=== PATIENT | female | born 2000 | race African-American/Black ===

== ENCOUNTER 2020-06-05 09:30 | Emergency (ER) | payer OTHER ==
--- NOTE | 2020-06-05 10:24 | EDPHYS ---
Physician Documentation [facility] Name: Coleen Connors Age: 20 yrs Sex: Female : 2000 Arrival Date: 06/05/2020 Time: 09:40 Bed 26 Private MD: ED Physician Gómez Sanchez HPI: 06/05 10:19 This 20 yrs old Black Female presents to ER via Ambulatory with complaints of jr8 Vomiting/Diarrhea. 10:19 Patient presents with complaints of diarrhea. She had 1 episode of vomiting on Tuesday jr8 last. Other members in the home have same symptoms. . Historical: - Allergies: 10:01 Purple Dye; aa5 - PMHx: 10:01 None; aa5 - Immunization history:: Flu vaccine is not up to date. - Social history:: Smoking status: Patient denies any tobacco usage or history of. ROS: 10:20 Cardiovascular: Negative for chest pain, palpitations, and edema, Respiratory: Negative jr8 for shortness of breath, cough, wheezing, and pleuritic chest pain, : Negative for injury, bleeding, discharge, and swelling, MS/Extremity: Negative for injury and deformity, Skin: Negative for injury, rash, and discoloration, Neuro: Negative for headache, weakness, numbness, tingling, and seizure. 10:20 Abdomen/GI: Positive for abdominal pain, diarrhea. 10:22 All other systems are negative. jr8 Exam: 10:21 Head/Face: Normocephalic, atraumatic. Cardiovascular: Regular rate and rhythm with a jr8 normal S1 and S2. No gallops, murmurs, or rubs. Normal PMI, no JVD. No pulse deficits. Respiratory: Lungs have equal breath sounds bilaterally, clear to auscultation and percussion. No rales, rhonchi or wheezes noted. No increased work of breathing, no retractions or nasal flaring. MS/ Extremity: Pulses equal, no cyanosis. Neurovascular intact. Full, normal range of motion. Neuro: Awake and alert, GCS 15, oriented to person, place, time, and situation. Cranial nerves II-XII grossly intact. Motor strength 5/5 in all extremities. Sensory grossly intact. Cerebellar exam normal. Normal gait. 10:21 Abdomen/GI: Inspection: abdomen appears normal, Bowel sounds: normal, in all quadrants, Palpation: soft, in all quadrants, mild abdominal tenderness, in all quadrants. Vital Signs: 09:51 BP 135 / 88; Pulse 110; Resp 16 S; Temp 98.6(TE); Pulse Ox 99% on R/A; aa5 MDM: 10:12 Patient medically screened. jr8 10:23 Data reviewed: vital signs, nurses notes, and as a result, I will discharge patient. jr8 Data interpreted: Pulse oximetry: on room air is 99 %. Interpretation: normal. Counseling: I had a detailed discussion with the patient and/or guardian regarding: the historical points, exam findings, and any diagnostic results supporting the discharge/admit diagnosis, the need for outpatient follow up, a family practitioner, to return to the emergency department if symptoms worsen or persist or if there are any questions or concerns that arise at home. 10:23 ED course: Educated to keep hydration with water and Pedialyte. Also informed to eat jr8 bland foods until bowels return to normal. She was educated on prescribed zofran and when to return to ED for herself and children. . Administered Medications: No medications were administered Disposition: 11:29 Co-signature as Attending Physician, Gómez Sanchez MD. rn Disposition: 06/05/20 10:24 Discharged to Home. Impression: Acute Gastroenteritis. - Condition is Stable. - Discharge Instructions: Viral Gastroenteritis, Adult. - Prescriptions for Bentyl 20 mg Oral Tablet - take 1 tablet by ORAL route every 6 hours As needed; 20 tablet. Zofran 4 mg Oral Tablet - take 1 tablet by ORAL route every 12 hours As needed; 20 tablet. - Medication Reconciliation Form, Thank You Letter, Antibiotic Education, Prescription Opioid Use form. - Follow up: Private Physician; When: As needed; Reason: Recheck today's complaints, Continuance of care, Re-evaluation by your physician. - Problem is new. - Symptoms have improved. Signatures: Gómez Sanchez MD MD rn Calderon, Audri RN RN aa5 Kamron Zaldivar PA PA jr8 Corrections: (The following items were deleted from the chart) 10:50 10:24 06/05/2020 10:24 Discharged to Home. Impression: Acute Gastroenteritis. Condition aa5 is Stable. Forms are Medication Reconciliation Form, Thank You Letter, Antibiotic Education, Prescription Opioid Use. Follow up: Private Physician; When: As needed; Reason: Recheck today's complaints, Continuance of care, Re-evaluation by your physician. Problem is new. Symptoms have improved. jr8
--- NOTE | 2020-06-05 10:24 | ER ---
Nurse's Notes [facility] Name: Coleen Connors Age: 20 yrs Sex: Female : 2000 Arrival Date: 06/05/2020 Time: 09:40 Bed 26 Private MD: Diagnosis: Acute Gastroenteritis Presentation: 06/05 09:51 Chief complaint: Patient states: nausea/vomiting/diarrhea that began last night. aa5 09:51 Coronavirus screen: diarrhea, nausea, vomiting. Ebola Screen: Patient negative for aa5 fever greater than or equal to 101.5 degrees Fahrenheit, and additional compatible Ebola Virus Disease symptoms. Initial Sepsis Screen: Does the patient meet any 2 criteria? HR > 90 bpm. Does the patient have a suspected source of infection? Yes:. Risk Assessment: Do you want to hurt yourself or someone else? Patient reports no desire to harm self or others. Onset of symptoms was May 2020. 09:51 Method Of Arrival: Ambulatory aa5 09:51 Acuity: FREEMAN 5 aa5 Historical: - Allergies: 10:01 Purple Dye; aa5 - PMHx: 10:01 None; aa5 - Immunization history:: Flu vaccine is not up to date. - Social history:: Smoking status: Patient denies any tobacco usage or history of. Screenin:14 Abuse screen: Denies threats or abuse. Nutritional screening: No deficits noted. aa5 Tuberculosis screening: No symptoms or risk factors identified. Fall Risk None identified. Assessment: 09:51 General: Appears comfortable, Behavior is calm, cooperative. Pain: Denies pain. Neuro: aa5 Level of Consciousness is awake, alert, obeys commands, Oriented to person, place, time, situation. Cardiovascular: Patient's skin is warm and dry. Respiratory: Airway is patent Respiratory effort is even, unlabored, Respiratory pattern is regular, symmetrical. GI: Abdomen is flat, non-distended, Bowel sounds present X 4 quads. Abd is soft and non tender X 4 quads. Reports diarrhea, nausea, vomiting. : No signs and/or symptoms were reported regarding the genitourinary system. EENT: No signs and/or symptoms were reported regarding the EENT system. Derm: Skin is dry, Skin is normal, Skin temperature is warm. Musculoskeletal: Range of motion: intact in all extremities. Vital Signs: 09:51 BP 135 / 88; Pulse 110; Resp 16 S; Temp 98.6(TE); Pulse Ox 99% on R/A; aa5 ED Course: 09:40 Patient arrived in ED. as 09:51 Arm band placed on Patient placed in an exam room, on a stretcher. aa5 09:51 Patient has correct armband on for positive identification. aa5 09:56 [facility] jr8 09:56 Gómez Sanchez MD is Attending Physician. jr8 10:00 Triage completed. aa5 10:11 Rosangela Rendon, RN is Primary Nurse. aa5 10:45 No provider procedures requiring assistance completed. Patient did not have IV access aa5 during this emergency room visit. Administered Medications: No medications were administered Outcome: 10:24 Discharge ordered by . jr8 10:45 Discharged to home ambulatory. aa5 10:45 Condition: stable aa5 10:45 Discharge instructions given to patient, Instructed on discharge instructions, follow up and referral plans. medication usage, Demonstrated understanding of instructions, follow-up care, medications, Prescriptions given X 2. 10:50 Patient left the ED. aa5 Signatures: Teressa Shields as Rosangela Rendon, RN RN aa5 Kamron Zaldivar PA PA jr
[2020-06-05 10:55] VITALS: BP 135/88; TEMP 98.6; O2SAT 99
== END 2020-06-05 10:50 | disposition home or self-care (01) ==
LOC: ER 09:30
DX: K52.9 Noninfective gastroenteritis and colitis, unspecified (principal); Z91.048 Other nonmedicinal substance allergy status
CPT/HCPCS: 99282

== ENCOUNTER 2020-07-01 19:35 | Emergency (ER) | payer SELFPAY ==
--- NOTE | 2020-07-01 20:58 | ER ---
Nurse's Notes [facility] Name: Coleen Connors Age: 20 yrs Sex: Female : 2000 Arrival Date: 07/01/2020 Time: 19:38 Bed Waiting Private MD: Diagnosis: Presentation: 07/01 20:36 Chief complaint: Patient states: Pt is feeling pain, that started today in the RLQ that vg1 feels 'like something is stuck' in that area; pt states nausea. Pt states feels weak and feels like 'im going to pass out'. Coronavirus screen: Client denies travel out of the [place] in the last 14 days. Ebola Screen: Patient negative for fever greater than or equal to 101.5 degrees Fahrenheit, and additional compatible Ebola Virus Disease symptoms. Initial Sepsis Screen: Does the patient meet any 2 criteria? No. Patient's initial sepsis screen is negative. Does the patient have a suspected source of infection? No. Patient's initial sepsis screen is negative. Risk Assessment: Do you want to hurt yourself or someone else? Patient reports no desire to harm self or others. Onset of symptoms was July 01, 2020. 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 - Social history:: Smoking status: Patient denies any tobacco usage or history of. Vital Signs: 20:36 BP 131 / 75; Pulse 58; Resp 16; Temp 98.5; Pulse Ox 98% ; Weight 77.11 kg; Height 5 ft. vg1 0 in. (152.40 cm); Pain 10/10; 20:36 Body Mass Index 33.20 (77.11 kg, 152.40 cm) vg1 ED Course: 19:38 Patient arrived in ED. es 20:39 Triage completed. vg1 20:39 Arm band placed on Patient notified of wait time Emesis basin given. vg1 Administered Medications: No medications were administered Outcome: 20:58 Patient left the ED. vg1 Signatures: Nanci Andrew Victoria, RN RN vg1
[2020-07-01 21:40] VITALS: BP 131/75; TEMP 98.5; O2SAT 98
== END 2020-07-01 20:58 | disposition left against medical advice (07) ==
LOC: ER 19:35
DX: Z02.9 Encounter for administrative examinations, unspecified (principal)
CPT/HCPCS: 99281